=== PATIENT | female | born 1935 | race Caucasian/White ===

== ENCOUNTER 2017-01-06 20:39 | Emergency (ER) | payer OTHER ==
[~2017-01-06] VITALS: Ht 157.5 cm; Wt 55.4 kg
[~2017-01-06 20:39] MED LIST: ALBUTEROL SULF8.5 GM IH; ALPRAZOLAM0.25 M2 PO; ASPIR 8181 M1 PO; ASPIR-LOW81 MG PO; ASPIRIN81 M1 PO; CALCITONIN-SAL3.8 ML ALT NARES; CALCITONIN-SAL3.8 ML NS; CALTRATE 6001 TABLE1 PO; CALTRATE PLUS1 EACH PO; CELEXA40 MG PO; CITALOPRAM HBR20 MG PO; CRESTOR10 MG PO; CRESTOR5 MG PO; DULCOLAX5 MG PO; FAMOTIDINE20 MG PO; FISH OIL CONC1000 M1 PO; FLEXERIL5 MG PO; FLONASE16 G1 BOTH NARES; HYDROMORPHONE HC4 MG PO; METOPROLOL SUCC25 MG PO; METOPROLOL TART25 MG PO; MIACALCIN4 ML NS; MIRALAX255 GM PO; NEXIUM 24HR20 MG PO; NEXIUM40 MG PO; NORCO 5/3251 TABLET PO; PEPCID20 MG PO; PERCOCET 5/31 TABLET PO; PLAVIX75 MG PO; PRILOSEC20 MG PO; PROVENTIL,2.5 MG/3 M IH; TUDORZA PRESS400 MCG IH; VALIUM2 MG PO; VALIUM5 MG PO; VENTOLIN HFA18 GM IH; ZEGERID; ZOFRAN4 MG PO
[2017-01-06 21:29] LABS: HEMATOCRIT 34.2 % (36.0-46.0); MCH 29.2 PG (29.0-34.0); MCHC 31.9 G/DL (30.0-36.0); MCV 91.7 FL (83-99); PLATELET COUNT 164 K/uL (156-360); RBC DIS.WIDTH-CV 14.2 % (11.8-14.6); RED BLOOD COUNT 3.73 M/uL (3.80-5.20); WHITE BLOOD COUNT 6.5 K/uL (4.1-10.2)
[2017-01-06 21:38] LABS: CHLORIDE 105 mEq/L (99-109); POTASSIUM 4.3 mEq/L (3.7-5.4); SODIUM 139 mEq/L (136-147)
[2017-01-06 21:40] LABS: GLUCOSE 115 mg/dL (70-99)
[2017-01-06 21:42] LABS: ANION GAP 6 MEQ/L (2-14); TOTAL BILIRUBIN 0.2 mg/dL (0.0-1.0)
[2017-01-06 21:44] LABS: ALKALINE PHOSPHATASE 73 IU/L (3-129); GFR ESTIMATE (CALCULATED) > 59 mL/min/
[2017-01-06 21:45] LABS: UREA NITROGEN (BUN) 23 mg/dL (9-23)
[2017-01-06 21:46] LABS: DIRECT BILIRUBIN 0.1 mg/dL (0.0-0.3)
[2017-01-06 21:47] LABS: LIPASE 16 U/L (1.0-51.0)
[2017-01-06 21:53] LABS: TROP-I INTERPRETATION NEGATIVE; TROPONIN-I < 0.01 ng/mL (0.0-0.30)
[2017-01-06] MEDS ORDERED: INHALER (22:55)
[2017-01-06] MEDS ORDERED: SYMBICORT IH (22:55)
[2017-01-06] MEDS ORDERED: HYDROCODON-ACE1 EAC7 PO (22:56)
[2017-01-07 00:02] VITALS: BP 162/67
== END 2017-01-07 00:03 | disposition home or self-care (01) ==
LOC: EME 20:39 → EDOF 23:16
PROVIDERS: Emergency Medicine
DX: R07.89 Other chest pain (principal); I25.10 Atherosclerotic heart disease of native coronary artery without angina pectoris; Z95.5 Presence of coronary angioplasty implant and graft; R11.2 Nausea with vomiting, unspecified; R06.02 Shortness of breath; J45.909 Unspecified asthma, uncomplicated; J44.9 Chronic obstructive pulmonary disease, unspecified; E78.5 Hyperlipidemia, unspecified; I10 Essential (primary) hypertension; I25.2 Old myocardial infarction; K21.9 Gastro-esophageal reflux disease without esophagitis; F32.9 Major depressive disorder, single episode, unspecified
CPT/HCPCS: 71010; 71275; 80048; 80076; 83605; 83690; 84484; 85027; 93005; 94640; 99281; 99285; G0378; J2270; J2405; J7030

== ENCOUNTER 2017-02-12 11:34 | Inpatient (IN) | payer OTHER ==
[~2017-02-12] VITALS: Ht 160 cm; Wt 53.4 kg
[~2017-02-12 11:34] MED LIST changes: +HYDROCODON-ACE1 EAC7 PO; +INHALER; +SYMBICORT IH
[2017-02-12 12:32] LABS: HEMATOCRIT 37.7 % (36.0-46.0); MCH 29.3 PG (29.0-34.0); MCV 94.5 FL (83-99); MEAN PLAT.VOLUME 10.9 uM^3 (9.5-12.4); PLATELET COUNT 257 K/uL (156-360); RBC DIS.WIDTH-CV 14.5 % (11.8-14.6); RBC DIS.WIDTH-SD 50.6 % (39-53); RED BLOOD COUNT 3.99 M/uL (3.80-5.20); WHITE BLOOD COUNT 9.4 K/uL (4.1-10.2)
[2017-02-12 12:43] LABS: CARBON DIOXIDE (BICARBONATE) 33.3 MEQ/L (20-31)
[2017-02-12 12:44] LABS: CHLORIDE 100 mEq/L (99-109); POTASSIUM 4.3 mEq/L (3.7-5.4); SODIUM 140 mEq/L (136-147)
[2017-02-12 12:45] LABS: GLUCOSE 126 mg/dL (70-99)
[2017-02-12 12:47] LABS: ANION GAP 13 MEQ/L (2-14)
[2017-02-12 12:49] LABS: GFR ESTIMATE (CALCULATED) > 59 mL/min/
[2017-02-12 12:50] LABS: UREA NITROGEN (BUN) 23 mg/dL (9-23)
[2017-02-12 12:56] LABS: TROP-I INTERPRETATION NEGATIVE; TROPONIN-I 0.04 ng/mL (0.0-0.30)
[2017-02-12] MEDS ORDERED: BACLOFEN10 MG PO (13:28)
[2017-02-12] MEDS ORDERED: SYMBICORT60 INHALAT IH (13:29)
[2017-02-12 16:41] VITALS: BP 187/73
[2017-02-12 23:13] VITALS: BP 179/80
[2017-02-13 03:40] VITALS: BP 138/64
[2017-02-13 07:25] VITALS: BP 152/69
[2017-02-13 07:26] LABS: ANION GAP 8 MEQ/L (2-14); CHLORIDE 100 MEQ/L (99-109); GFR ESTIMATE (CALCULATED) > 59 mL/min/; POTASSIUM 4.8 MEQ/L (3.7-5.4); SAMPLE HEMOLYSIS CHECK 0; SAMPLE ICTERIC CHECK 0; SAMPLE LIPEMIA CHECK 0; SODIUM 141 MEQ/L (136-147); UREA NITROGEN (BUN) 26 mg/dL (9-23)
[2017-02-13 07:31] LABS: HEMATOCRIT 35.4 % (36.0-46.0); MCHC 30.8 G/DL (30.0-36.0); MCV 94.1 FL (83-99); MEAN PLAT.VOLUME 10.8 uM^3 (9.5-12.4); PLATELET COUNT 245 K/uL (156-360); RBC DIS.WIDTH-CV 14.1 % (11.8-14.6); RED BLOOD COUNT 3.76 M/uL (3.80-5.20)
[2017-02-13 07:34] LABS: GLUCOSE 191 mg/dL (70-99)
[2017-02-13 07:35] LABS: WHITE BLOOD COUNT 6.2 K/uL (4.1-10.2)
[2017-02-13 11:01] VITALS: BP 126/60
[2017-02-13 15:49] VITALS: BP 131/61
[2017-02-13 19:01] VITALS: BP 134/62
[2017-02-13 22:46] VITALS: BP 153/69
[2017-02-14 07:17] VITALS: BP 168/71
[2017-02-14 11:13] VITALS: BP 142/60
[2017-02-14 15:46] VITALS: BP 148/65
[2017-02-14 18:41] VITALS: BP 157/72
[2017-02-14 22:29] VITALS: BP 159/68
[2017-02-15] MEDS ORDERED: PREDNISONE10 MG PO (06:46)
[2017-02-15] MEDS ORDERED: CEFTIN500 MG PO (06:47)
[2017-02-15] MEDS ORDERED: NEBULIZER MC (06:48)
[2017-02-15 08:24] VITALS: BP 183/87
[2017-02-15] MEDS ORDERED: DUONEB 2.5-0.5 M3 ML AEROSOL (08:42)
[2017-02-15 11:42] VITALS: BP 168/73
== END 2017-02-15 15:20 | disposition home or self-care (01) | DRG 190 ==
LOC: EME 11:34 → EDOF 13:00 → 5EAST 13:00 → EDOF 13:00 → 5EAST 16:13
PROVIDERS: Emergency Medicine; Family Medicine
DX: J44.1 Chronic obstructive pulmonary disease with (acute) exacerbation (principal); J96.21 Acute and chronic respiratory failure with hypoxia; K21.9 Gastro-esophageal reflux disease without esophagitis; I25.10 Atherosclerotic heart disease of native coronary artery without angina pectoris; E78.5 Hyperlipidemia, unspecified; F41.9 Anxiety disorder, unspecified; F32.9 Major depressive disorder, single episode, unspecified; I73.9 Peripheral vascular disease, unspecified; Z95.820 Peripheral vascular angioplasty status with implants and grafts; M81.0 Age-related osteoporosis without current pathological fracture; I10 Essential (primary) hypertension; F17.200 Nicotine dependence, unspecified, uncomplicated; Z99.81 Dependence on supplemental oxygen; Z95.5 Presence of coronary angioplasty implant and graft; Z95.2 Presence of prosthetic heart valve; Z79.02 Long term (current) use of antithrombotics/antiplatelets; Z79.82 Long term (current) use of aspirin; I25.2 Old myocardial infarction; Z86.73 Personal history of transient ischemic attack (TIA), and cerebral infarction without residual deficits
CPT/HCPCS: 71020; 80048; 82803; 83605; 83880; 84484; 85027; 87040; 93005; 94640; 94640 76; 94760; 94799; 99202; 99281; 99285; J0456; J0696; J1100; J1644; J2405; J2930; J7050

== ENCOUNTER → 2017-10-09 | Outpatient (CLI) | payer OTHER ==
[~2017-10-09] VITALS: Ht 161.3 cm; Wt 54.5 kg
[~2017-10-09] MED LIST changes: +ARICEPT5 MG PO; +BACLOFEN10 MG PO; +CEFTIN500 MG PO; +DUONEB 2.5-0.5 M3 ML AEROSOL; +NEBULIZER MC; +PREDNISONE10 MG PO; +SYMBICORT60 INHALAT IH
== END | disposition home or self-care (01) ==
LOC: AMB 06:27
DX: K22.4 Dyskinesia of esophagus (principal); K22.2 Esophageal obstruction; K29.50 Unspecified chronic gastritis without bleeding; R11.0 Nausea; K21.9 Gastro-esophageal reflux disease without esophagitis; J44.9 Chronic obstructive pulmonary disease, unspecified; F41.8 Other specified anxiety disorders; F17.210 Nicotine dependence, cigarettes, uncomplicated; Z79.82 Long term (current) use of aspirin; Z86.73 Personal history of transient ischemic attack (TIA), and cerebral infarction without residual deficits; I25.2 Old myocardial infarction
CPT/HCPCS: 88305; 88342 TC

== ENCOUNTER 2017-11-11 18:34 | Inpatient (IN) | payer OTHER ==
[~2017-11-11] VITALS: Ht 160 cm; Wt 56.8 kg
[2017-11-11 20:13] LABS: BASE EXCESS 6.2 mEq/L (-3 to +3); BICARBONATE 33.3 mEq/L (22-26); CARBOXY HGB 2.6 % (0-5); COMMENTS - BLOOD GASES C+; DEVICE NC; METHEMOGLOBIN 1.1 % (0-1.5); O2 FLOW 2 L/MIN; PCO2 59 mm Hg (35-45); PO2 73 mm Hg (80-100); SITE LB; TOTAL RESP RATE 30 resp/min; pH 7.36 (7.35-7.45)
[2017-11-11 20:41] LABS: HEMATOCRIT 39.1 % (36.0-46.0); HEMOGLOBIN 12.3 G/DL (11.9-15.5); MCH 29.9 PG (29.0-34.0); MCHC 31.5 G/DL (30.0-36.0); MCV 95.1 FL (83-99); NRBC (%) 0.3 /100 WBC (0-0); PLATELET COUNT 212 K/uL (156-360); RBC DIS.WIDTH-SD 49.1 % (39-53); RED BLOOD COUNT 4.11 M/uL (3.80-5.20); WHITE BLOOD COUNT 24.5 K/uL (4.1-10.2)
[2017-11-11 20:51] LABS: ALBUMIN 3.3 g/dL (3.2-4.8); CHLORIDE 100 mEq/L (99-109); POTASSIUM 4.8 mEq/L (3.7-5.4); SODIUM 144 mEq/L (136-147)
[2017-11-11 20:53] LABS: GLUCOSE 126 mg/dL (70-99); TOTAL PROTEIN 6.9 g/dL (6.4-8.3)
[2017-11-11 20:55] LABS: TOTAL BILIRUBIN 0.5 mg/dL (0.0-1.0)
[2017-11-11 20:57] LABS: ALKALINE PHOSPHATASE 131 IU/L (3-129); CREATININE 1.8 mg/dL (0.6-1.3); GFR ESTIMATE (CALCULATED) 29 mL/min/
[2017-11-11 20:58] LABS: UREA NITROGEN (BUN) 87 mg/dL (9-23)
[2017-11-11 21:00] LABS: ALT (GPT) 945 IU/L (3-49)
[2017-11-11 21:01] LABS: AST (GOT) 1412 IU/L (2-34)
[2017-11-11] MEDS ORDERED: DONEPEZIL HCL10 M1 PO (23:12)
[2017-11-11] MEDS ORDERED: ROSUVASTATIN CA10 MG PO (23:13)
[2017-11-11] MEDS ORDERED: CITALOPRAM HBR20 MG PO (23:13)
[2017-11-11] MEDS ORDERED: ALPRAZOLAM0.25 M2 PO (23:13)
[2017-11-11] MEDS ORDERED: BENZONATATE100 MG PO (23:18)
[2017-11-11 23:23] LABS: APPEARANCE SL.HAZY ((CLEAR)); BILIRUBIN NEGATIVE; BLOOD MODERATE; COLOR YELLOW ((YELLOW)); GLUCOSE (STRIP) NEGATIVE; KETONES NEGATIVE; LEUKOCYTES SMALL; NITRITE NEGATIVE; PROTEIN (STRIP) 30; SPECIFIC GRAVITY 1.017 (1.000-1.030)
[2017-11-11 23:32] LABS: BACTERIA 2+ /HPF; EPITHELIAL CELLS 3+ /HPF; MUCUS TRACE /LPF; RED BLOOD CELLS 0-5 /HPF (0-5); UCUL ADDED? YES
[2017-11-12 07:28] LABS: BASOPHIL (%) 0.2 % (0-1); EOSINOPHIL (%) 0.1 % (0-5); HEMATOCRIT 35.7 % (36.0-46.0); HEMOGLOBIN 11.2 G/DL (11.9-15.5); IMMATURE GRANULOCYTE (%) 1.4 % (0.0-0.7); LYMPHOCYTE (%) 5.7 % (15-42); LYMPHOCYTE COUNT 1.1 K/uL (1.0-2.8); MCH 29.2 PG (29.0-34.0); MCHC 31.4 G/DL (30.0-36.0); MCV 93.2 FL (83-99); MONOCYTE (%) 3.2 % (3-12); MONOCYTE COUNT 0.6 K/uL (0-0.8); NEUTROPHIL (%) 89.4 % (45-76); NEUTROPHIL COUNT 16.7 K/uL (1.8-6.4); NRBC (%) 0.3 /100 WBC (0-0); PLATELET COUNT 190 K/uL (156-360); RBC DIS.WIDTH-CV 14.1 % (11.8-14.6); RBC DIS.WIDTH-SD 48.1 % (39-53); RED BLOOD COUNT 3.83 M/uL (3.80-5.20); WHITE BLOOD COUNT 18.6 K/uL (4.1-10.2)
[2017-11-12 08:10] LABS: ALBUMIN 2.8 G/DL (3.2-4.8); ALKALINE PHOSPHATASE 105 IU/L (3-129); ALT (GPT) 540 IU/L (3-49); AST (GOT) 690 IU/L (2-34); CHLORIDE 109 MEQ/L (99-109); CREATININE 1.1 MG/DL (0.6-1.3); GFR ESTIMATE (CALCULATED) 51 mL/min/; GLUCOSE 86 mg/dL (70-99); LIPASE 15 U/L (1.0-51.0); SODIUM 145 MEQ/L (136-147); TOTAL BILIRUBIN 0.5 MG/DL (0.0-1.0); TOTAL PROTEIN 5.8 G/DL (6.4-8.3); UREA NITROGEN (BUN) 60 mg/dL (9-23)
[2017-11-12 08:57] LABS: INTER. NORMALIZED RATIO 1.2
[2017-11-12 09:00] LABS: PTT 21.2 SEC (25-37)
[2017-11-12 11:53] LABS: HEPATITIS B SURFACE ANTIGEN Nonreactive
[2017-11-12 11:54] LABS: HEPATITIS C ANTIBODY Nonreactive
[2017-11-12 11:55] LABS: ANTI-HEPATITIS A VIRUS (IGM) Nonreactive
[2017-11-12 11:57] LABS: ANTI-HEPATITIS B CORE (IGM) Nonreactive
[2017-11-13 00:14] VITALS: BP 170/79
[2017-11-13 06:54] LABS: BASOPHIL (%) 0.3 % (0-1); EOSINOPHIL (%) 0.1 % (0-5); HEMATOCRIT 38.1 % (36.0-46.0); HEMOGLOBIN 11.8 G/DL (11.9-15.5); IMMATURE GRANULOCYTE (%) 1.5 % (0.0-0.7); LYMPHOCYTE (%) 6.1 % (15-42); LYMPHOCYTE COUNT 0.9 K/uL (1.0-2.8); MCH 28.6 PG (29.0-34.0); MCV 92.3 FL (83-99); MONOCYTE (%) 4.4 % (3-12); MONOCYTE COUNT 0.7 K/uL (0-0.8); NEUTROPHIL (%) 87.6 % (45-76); NEUTROPHIL COUNT 13.3 K/uL (1.8-6.4); NRBC (%) 0.1 /100 WBC (0-0); PLATELET COUNT 180 K/uL (156-360); RBC DIS.WIDTH-CV 14.1 % (11.8-14.6); RBC DIS.WIDTH-SD 47.7 % (39-53); RED BLOOD COUNT 4.13 M/uL (3.80-5.20); WHITE BLOOD COUNT 15.1 K/uL (4.1-10.2)
[2017-11-13 07:17] LABS: ALKALINE PHOSPHATASE 117 IU/L (3-129); ALT (GPT) 453 IU/L (3-49); CHLORIDE 99 MEQ/L (99-109); GLUCOSE 102 mg/dL (70-99); POTASSIUM 3.5 MEQ/L (3.7-5.4); SODIUM 144 MEQ/L (136-147)
[2017-11-13 07:22] LABS: AST (GOT) 359 IU/L (2-34); CREATININE 0.6 MG/DL (0.6-1.3); GFR ESTIMATE (CALCULATED) > 59 mL/min/; TOTAL BILIRUBIN 0.8 MG/DL (0.0-1.0); UREA NITROGEN (BUN) 25 mg/dL (9-23)
[2017-11-13 08:15] VITALS: BP 203/88
[2017-11-13 16:54] VITALS: BP 173/76
[2017-11-14 00:20] VITALS: BP 136/66
[2017-11-14 07:13] LABS: BASOPHIL (%) 0.3 % (0-1); EOSINOPHIL (%) 0.3 % (0-5); HEMATOCRIT 36.8 % (36.0-46.0); HEMOGLOBIN 11.3 G/DL (11.9-15.5); IMMATURE GRANULOCYTE (%) 0.9 % (0.0-0.7); LYMPHOCYTE (%) 9.2 % (15-42); LYMPHOCYTE COUNT 0.9 K/uL (1.0-2.8); MCH 28.3 PG (29.0-34.0); MCHC 30.7 G/DL (30.0-36.0); MONOCYTE (%) 5.5 % (3-12); MONOCYTE COUNT 0.6 K/uL (0-0.8); NEUTROPHIL (%) 83.8 % (45-76); NEUTROPHIL COUNT 8.5 K/uL (1.8-6.4); PLATELET COUNT 151 K/uL (156-360); RBC DIS.WIDTH-CV 14.3 % (11.8-14.6); RBC DIS.WIDTH-SD 48.2 % (39-53); WHITE BLOOD COUNT 10.2 K/uL (4.1-10.2)
[2017-11-14 07:47] LABS: ALBUMIN 2.6 G/DL (3.2-4.8); ALKALINE PHOSPHATASE 88 IU/L (3-129); ALT (GPT) 313 IU/L (3-49); CHLORIDE 101 MEQ/L (99-109); CREATININE 0.8 MG/DL (0.6-1.3); GFR ESTIMATE (CALCULATED) > 59 mL/min/; GLUCOSE 122 mg/dL (70-99); POTASSIUM 3.4 MEQ/L (3.7-5.4); SODIUM 143 MEQ/L (136-147); TOTAL BILIRUBIN 0.9 MG/DL (0.0-1.0); TOTAL PROTEIN 5.5 G/DL (6.4-8.3); UREA NITROGEN (BUN) 22 mg/dL (9-23)
[2017-11-14 07:50] LABS: AST (GOT) 157 IU/L (2-34)
[2017-11-14 09:14] VITALS: BP 134/66
[2017-11-14 16:15] VITALS: BP 132/62
[2017-11-15 00:31] VITALS: BP 125/60
[2017-11-15 07:04] LABS: BASOPHIL (%) 0.3 % (0-1); EOSINOPHIL (%) 0.8 % (0-5); EOSINOPHIL COUNT 0.1 K/uL (0-0.3); HEMOGLOBIN 10.3 G/DL (11.9-15.5); LYMPHOCYTE (%) 10.9 % (15-42); MCH 29.2 PG (29.0-34.0); MCHC 31.2 G/DL (30.0-36.0); MCV 93.5 FL (83-99); MONOCYTE (%) 7.6 % (3-12); MONOCYTE COUNT 0.7 K/uL (0-0.8); NEUTROPHIL (%) 79.4 % (45-76); NEUTROPHIL COUNT 7.3 K/uL (1.8-6.4); PLATELET COUNT 129 K/uL (156-360); RBC DIS.WIDTH-CV 14.5 % (11.8-14.6); RBC DIS.WIDTH-SD 49.1 % (39-53); RED BLOOD COUNT 3.53 M/uL (3.80-5.20); WHITE BLOOD COUNT 9.1 K/uL (4.1-10.2)
[2017-11-15 07:35] LABS: ALBUMIN 2.6 G/DL (3.2-4.8); ALKALINE PHOSPHATASE 82 IU/L (3-129); ALT (GPT) 195 IU/L (3-49); CHLORIDE 105 MEQ/L (99-109); CREATININE 0.6 MG/DL (0.6-1.3); GFR ESTIMATE (CALCULATED) > 59 mL/min/; GLUCOSE 108 mg/dL (70-99); SODIUM 141 MEQ/L (136-147); TOTAL PROTEIN 5.7 G/DL (6.4-8.3); UREA NITROGEN (BUN) 17 mg/dL (9-23)
[2017-11-15 07:48] LABS: AST (GOT) 69 IU/L (2-34); TOTAL BILIRUBIN 0.6 MG/DL (0.0-1.0)
[2017-11-15 08:16] VITALS: BP 179/75
[2017-11-15 16:16] VITALS: BP 125/58
[2017-11-16 00:20] VITALS: BP 164/72
[2017-11-16 07:25] LABS: BASOPHIL (%) 0.5 % (0-1); EOSINOPHIL (%) 1.1 % (0-5); EOSINOPHIL COUNT 0.1 K/uL (0-0.3); HEMATOCRIT 34.2 % (36.0-46.0); HEMOGLOBIN 10.5 G/DL (11.9-15.5); IMMATURE GRANULOCYTE (%) 0.8 % (0.0-0.7); LYMPHOCYTE (%) 9.8 % (15-42); LYMPHOCYTE COUNT 0.8 K/uL (1.0-2.8); MCH 29.5 PG (29.0-34.0); MCHC 30.7 G/DL (30.0-36.0); MCV 96.1 FL (83-99); MONOCYTE (%) 6.4 % (3-12); MONOCYTE COUNT 0.6 K/uL (0-0.8); NEUTROPHIL (%) 81.4 % (45-76); PLATELET COUNT 121 K/uL (156-360); RBC DIS.WIDTH-CV 14.5 % (11.8-14.6); RBC DIS.WIDTH-SD 50.6 % (39-53); RED BLOOD COUNT 3.56 M/uL (3.80-5.20); WHITE BLOOD COUNT 8.6 K/uL (4.1-10.2)
[2017-11-16 07:47] VITALS: BP 98/58
[2017-11-16 07:57] LABS: ALBUMIN 2.6 G/DL (3.2-4.8); ALKALINE PHOSPHATASE 86 IU/L (3-129); ALT (GPT) 143 IU/L (3-49); AST (GOT) 42 IU/L (2-34); CHLORIDE 103 MEQ/L (99-109); CREATININE 0.7 MG/DL (0.6-1.3); GFR ESTIMATE (CALCULATED) > 59 mL/min/; GLUCOSE 162 mg/dL (70-99); POTASSIUM 3.3 MEQ/L (3.7-5.4); SODIUM 145 MEQ/L (136-147); TOTAL BILIRUBIN 0.5 MG/DL (0.0-1.0); TOTAL PROTEIN 5.5 G/DL (6.4-8.3); UREA NITROGEN (BUN) 15 mg/dL (9-23)
[2017-11-16 16:25] VITALS: BP 138/74
[2017-11-17 00:48] VITALS: BP 153/67
[2017-11-17 06:51] LABS: BASOPHIL (%) 0.5 % (0-1); EOSINOPHIL (%) 1.6 % (0-5); EOSINOPHIL COUNT 0.1 K/uL (0-0.3); HEMATOCRIT 31.7 % (36.0-46.0); HEMOGLOBIN 9.7 G/DL (11.9-15.5); IMMATURE GRANULOCYTE (%) 0.7 % (0.0-0.7); LYMPHOCYTE (%) 14.2 % (15-42); LYMPHOCYTE COUNT 1.2 K/uL (1.0-2.8); MCH 28.9 PG (29.0-34.0); MCHC 30.6 G/DL (30.0-36.0); MCV 94.3 FL (83-99); MONOCYTE (%) 8.4 % (3-12); MONOCYTE COUNT 0.7 K/uL (0-0.8); NEUTROPHIL (%) 74.6 % (45-76); NEUTROPHIL COUNT 6.1 K/uL (1.8-6.4); PLATELET COUNT 124 K/uL (156-360); RBC DIS.WIDTH-CV 14.6 % (11.8-14.6); RBC DIS.WIDTH-SD 49.5 % (39-53); RED BLOOD COUNT 3.36 M/uL (3.80-5.20); WHITE BLOOD COUNT 8.2 K/uL (4.1-10.2)
[2017-11-17 07:17] LABS: ALBUMIN 2.5 G/DL (3.2-4.8); ALKALINE PHOSPHATASE 72 IU/L (3-129); ALT (GPT) 107 IU/L (3-49); AST (GOT) 31 IU/L (2-34); CHLORIDE 101 MEQ/L (99-109); CREATININE 0.7 MG/DL (0.6-1.3); GFR ESTIMATE (CALCULATED) > 59 mL/min/; SODIUM 141 MEQ/L (136-147); TOTAL BILIRUBIN 0.4 MG/DL (0.0-1.0); TOTAL PROTEIN 5.2 G/DL (6.4-8.3); UREA NITROGEN (BUN) 14 mg/dL (9-23)
[2017-11-17 07:23] VITALS: BP 171/77
[2017-11-17 07:29] LABS: GLUCOSE 95 mg/dL (70-99)
[2017-11-17 15:41] VITALS: BP 167/76
[2017-11-18 00:55] VITALS: BP 166/73
[2017-11-18 07:11] LABS: BASOPHIL (%) 0 % (0-1); EOSINOPHIL (%) 0 % (0-5); HEMATOCRIT 33.3 % (36.0-46.0); HEMOGLOBIN 10.3 G/DL (11.9-15.5); IMMATURE GRANULOCYTE (%) 0.7 % (0.0-0.7); LYMPHOCYTE (%) 5.5 % (15-42); LYMPHOCYTE COUNT 0.2 K/uL (1.0-2.8); MCH 28.9 PG (29.0-34.0); MCHC 30.9 G/DL (30.0-36.0); MCV 93.5 FL (83-99); MONOCYTE (%) 2.5 % (3-12); MONOCYTE COUNT 0.1 K/uL (0-0.8); NEUTROPHIL (%) 91.3 % (45-76); PLATELET COUNT 151 K/uL (156-360); RBC DIS.WIDTH-CV 14.5 % (11.8-14.6); RED BLOOD COUNT 3.56 M/uL (3.80-5.20); WHITE BLOOD COUNT 4.4 K/uL (4.1-10.2)
[2017-11-18 07:16] VITALS: BP 158/69
[2017-11-18 07:35] LABS: ALBUMIN 2.7 G/DL (3.2-4.8); ALKALINE PHOSPHATASE 75 IU/L (3-129); ALT (GPT) 86 IU/L (3-49); AST (GOT) 22 IU/L (2-34); CHLORIDE 98 MEQ/L (99-109); CREATININE 0.8 MG/DL (0.6-1.3); GFR ESTIMATE (CALCULATED) > 59 mL/min/; GLUCOSE 276 mg/dL (70-99); POTASSIUM 4.3 MEQ/L (3.7-5.4); SODIUM 139 MEQ/L (136-147); TOTAL PROTEIN 5.7 G/DL (6.4-8.3); UREA NITROGEN (BUN) 16 mg/dL (9-23)
[2017-11-18 07:36] LABS: TOTAL BILIRUBIN 0.5 MG/DL (0.0-1.0)
[2017-11-18 15:00] VITALS: BP 150/66
[2017-11-18 23:38] VITALS: BP 154/70
[2017-11-19 07:37] VITALS: BP 142/63
[2017-11-19 15:32] VITALS: BP 92/54
[2017-11-19 23:33] VITALS: BP 154/69
[2017-11-20 08:08] VITALS: BP 130/61
[2017-11-20 16:27] VITALS: BP 151/68
[2017-11-21 00:44] VITALS: BP 118/56
[2017-11-21 07:25] VITALS: BP 154/67
[2017-11-21 15:14] VITALS: BP 133/62
[2017-11-21 23:53] VITALS: BP 131/66
[2017-11-22 05:48] LABS: HEMATOCRIT 35.9 % (36.0-46.0); HEMOGLOBIN 11.4 G/DL (11.9-15.5); MCH 28.9 PG (29.0-34.0); MCHC 31.8 G/DL (30.0-36.0); MCV 91.1 FL (83-99); RBC DIS.WIDTH-CV 14.6 % (11.8-14.6); RBC DIS.WIDTH-SD 48.2 % (39-53); RED BLOOD COUNT 3.94 M/uL (3.80-5.20); WHITE BLOOD COUNT 9.3 K/uL (4.1-10.2)
[2017-11-22 05:51] LABS: PLATELET COUNT 268 K/uL (156-360)
[2017-11-22 06:28] LABS: ALBUMIN 2.9 G/DL (3.2-4.8); ALKALINE PHOSPHATASE 74 IU/L (3-129); ALT (GPT) 38 IU/L (3-49); AST (GOT) 18 IU/L (2-34); CHLORIDE 99 MEQ/L (99-109); CREATININE 0.6 MG/DL (0.6-1.3); GFR ESTIMATE (CALCULATED) > 59 mL/min/; GLUCOSE 124 mg/dL (70-99); POTASSIUM 3.9 MEQ/L (3.7-5.4); SODIUM 137 MEQ/L (136-147); TOTAL PROTEIN 5.6 G/DL (6.4-8.3)
[2017-11-22 06:29] LABS: TOTAL BILIRUBIN 0.3 MG/DL (0.0-1.0); UREA NITROGEN (BUN) 25 mg/dL (9-23)
[2017-11-22 07:35] VITALS: BP 137/64
[2017-11-22] MEDS ORDERED: NICOTINE PATCH1 EAC1 TD (14:13)
[2017-11-22] MEDS ORDERED: LORAZEPAM0.5 MG PO (14:31)
[2017-11-22 15:49] VITALS: BP 118/55
== END 2017-11-22 17:22 | DRG 189 ==
LOC: EME 18:34 → EDOF 11-12 00:10 → 5SOUTH 11-12 00:10 → ENRESERV 11-12 00:27 → 5SOUTH 11-12 18:19
PROVIDERS: Emergency Medicine; Family Medicine
DX: J96.20 Acute and chronic respiratory failure, unspecified whether with hypoxia or hypercapnia (principal); J18.9 Pneumonia, unspecified organism; N17.9 Acute kidney failure, unspecified; E78.5 Hyperlipidemia, unspecified; F41.8 Other specified anxiety disorders; K21.9 Gastro-esophageal reflux disease without esophagitis; E87.6 Hypokalemia; M81.0 Age-related osteoporosis without current pathological fracture; R74.8 Abnormal levels of other serum enzymes; F02.80 Dementia in other diseases classified elsewhere, unspecified severity, without behavioral disturbance, psychotic disturbance, mood disturbance, and anxiety; G30.9 Alzheimer's disease, unspecified; R74.0 Nonspecific elevation of levels of transaminase and lactic acid dehydrogenase [LDH]; I25.10 Atherosclerotic heart disease of native coronary artery without angina pectoris; F17.210 Nicotine dependence, cigarettes, uncomplicated; J43.2 Centrilobular emphysema; G47.00 Insomnia, unspecified; I73.9 Peripheral vascular disease, unspecified; K57.30 Diverticulosis of large intestine without perforation or abscess without bleeding; I35.0 Nonrheumatic aortic (valve) stenosis; I71.4 Abdominal aortic aneurysm, without rupture; Z86.73 Personal history of transient ischemic attack (TIA), and cerebral infarction without residual deficits; Z99.81 Dependence on supplemental oxygen; Z95.5 Presence of coronary angioplasty implant and graft; Z95.2 Presence of prosthetic heart valve; Z79.82 Long term (current) use of aspirin; Z88.8 Allergy status to other drugs, medicaments and biological substances; I25.2 Old myocardial infarction; Z79.899 Other long term (current) drug therapy; Z91.19 Patient's noncompliance with other medical treatment and regimen
CPT/HCPCS: 36600; 71046; 71250; 74176; 76705; 80053; 80074; 81003; 82803; 83690; 85025; 85027; 85610; 85730; 87077; 87086; 87186; 87502; 93005; 94640; 94640 76; 94667; 94668; 94799; 97530 GP; 99202; 99281; 99285; J0692; J1644; J1940; J2405; J2543; J2920; J3480; J7030; J7050; J7512; S0028

== ENCOUNTER 2018-01-23 15:41 | Inpatient (IN) | payer OTHER ==
[~2018-01-23] VITALS: Ht 160 cm; Wt 54.5 kg
[~2018-01-23 15:41] MED LIST changes: +BENZONATATE100 MG PO; +DONEPEZIL HCL10 M1 PO; +LORAZEPAM0.5 MG PO; +NICOTINE PATCH1 EAC1 TD; +ROSUVASTATIN CA10 MG PO
[2018-01-23 17:20] LABS: CHLORIDE 101 mEq/L (99-109); POTASSIUM 4.1 mEq/L (3.7-5.4); SODIUM 141 mEq/L (136-147)
[2018-01-23 17:21] LABS: GLUCOSE 101 mg/dL (70-99)
[2018-01-23 17:25] LABS: CREATININE 0.6 mg/dL (0.6-1.3); GFR ESTIMATE (CALCULATED) > 59 mL/min/
[2018-01-23 17:26] LABS: UREA NITROGEN (BUN) 14 mg/dL (9-23)
[2018-01-23 17:39] LABS: BASOPHIL (%) 0.3 % (0-1); EOSINOPHIL (%) 2.1 % (0-5); EOSINOPHIL COUNT 0.1 K/uL (0-0.3); HEMATOCRIT 32.2 % (36.0-46.0); HEMOGLOBIN 9.9 G/DL (11.9-15.5); IMMATURE GRANULOCYTE (%) 0.3 % (0.0-0.7); LYMPHOCYTE COUNT 0.7 K/uL (1.0-2.8); MCH 29.6 PG (29.0-34.0); MCHC 30.7 G/DL (30.0-36.0); MCV 96.1 FL (83-99); MONOCYTE (%) 8.1 % (3-12); MONOCYTE COUNT 0.5 K/uL (0-0.8); NEUTROPHIL (%) 77.2 % (45-76); NEUTROPHIL COUNT 4.5 K/uL (1.8-6.4); PLATELET COUNT 168 K/uL (156-360); RBC DIS.WIDTH-CV 15.2 % (11.8-14.6); RBC DIS.WIDTH-SD 53.9 % (39-53); RED BLOOD COUNT 3.35 M/uL (3.80-5.20); WHITE BLOOD COUNT 5.8 K/uL (4.1-10.2)
[2018-01-23 17:46] LABS: TROP-I INTERPRETATION NEGATIVE; TROPONIN-I 0.01 ng/mL (0.0-0.30)
[2018-01-23] MEDS ORDERED: DUONEB 2.5-0.5 M3 ML AEROSOL (19:06)
[2018-01-23] MEDS ORDERED: NICODERM CQ1 EAC1 TD (19:06)
[2018-01-23] MEDS ORDERED: ATIVAN0.5 MG PO (19:07)
[2018-01-23] MEDS ORDERED: XANAX0.25 MG PO (19:07)
[2018-01-23] MEDS ORDERED: VENTOLIN HFA18 GM IH (19:08)
[2018-01-23] MEDS ORDERED: TRAZODONE HCL50 MG PO (19:08)
[2018-01-23] MEDS ORDERED: FLONASE16 G1 BOTH NARES (19:09)
[2018-01-23] MEDS ORDERED: SALINE NOSE SPR45 M1 BOTH NARES (19:09)
[2018-01-23 23:15] VITALS: BP 165/62
[2018-01-24 03:57] VITALS: BP 148/65
[2018-01-24 07:55] VITALS: BP 146/69
[2018-01-24 11:34] VITALS: BP 166/73
[2018-01-24 16:15] VITALS: BP 167/79
[2018-01-24 20:05] VITALS: BP 150/93
[2018-01-24 23:15] VITALS: BP 145/72
[2018-01-25 03:30] VITALS: BP 148/79
[2018-01-25 07:44] LABS: BASOPHIL (%) 0.1 % (0-1); EOSINOPHIL (%) 0 % (0-5); HEMATOCRIT 29.9 % (36.0-46.0); HEMOGLOBIN 9.2 G/DL (11.9-15.5); IMMATURE GRANULOCYTE (%) 0.7 % (0.0-0.7); LYMPHOCYTE (%) 6.5 % (15-42); LYMPHOCYTE COUNT 0.4 K/uL (1.0-2.8); MCHC 30.8 G/DL (30.0-36.0); MCV 94.3 FL (83-99); MONOCYTE (%) 5.1 % (3-12); MONOCYTE COUNT 0.3 K/uL (0-0.8); NEUTROPHIL (%) 87.6 % (45-76); NEUTROPHIL COUNT 5.9 K/uL (1.8-6.4); PLATELET COUNT 165 K/uL (156-360); RBC DIS.WIDTH-CV 14.9 % (11.8-14.6); RBC DIS.WIDTH-SD 52.5 % (39-53); RED BLOOD COUNT 3.17 M/uL (3.80-5.20); WHITE BLOOD COUNT 6.7 K/uL (4.1-10.2)
[2018-01-25 08:12] LABS: CHLORIDE 99 MEQ/L (99-109); CREATININE 0.6 MG/DL (0.6-1.3); GFR ESTIMATE (CALCULATED) > 59 mL/min/; GLUCOSE 144 mg/dL (70-99); POTASSIUM 4.7 MEQ/L (3.7-5.4); SODIUM 137 MEQ/L (136-147)
[2018-01-25 08:14] LABS: UREA NITROGEN (BUN) 22 mg/dL (9-23)
[2018-01-25 08:44] VITALS: BP 162/78
[2018-01-25] MEDS ORDERED: CEFTIN500 MG PO (13:47)
[2018-01-25] MEDS ORDERED: PREDNISONE20 MG PO (13:48)
== END 2018-01-25 16:43 | disposition home health service (06) | DRG 194 ==
LOC: EME → EDBD 15:41 → EME 15:41 → EDOF 19:15 → 2EAST 19:15 → ENRESERV 19:48 → 2EAST 01-24 00:15
PROVIDERS: Emergency Medicine; Family Medicine
DX: J18.1 Lobar pneumonia, unspecified organism (principal); J44.1 Chronic obstructive pulmonary disease with (acute) exacerbation; J44.0 Chronic obstructive pulmonary disease with (acute) lower respiratory infection; F02.81 Dementia in other diseases classified elsewhere, unspecified severity, with behavioral disturbance; F05 Delirium due to known physiological condition; J90 Pleural effusion, not elsewhere classified; E78.5 Hyperlipidemia, unspecified; I25.10 Atherosclerotic heart disease of native coronary artery without angina pectoris; Z66 Do not resuscitate; I44.7 Left bundle-branch block, unspecified; I73.9 Peripheral vascular disease, unspecified; K21.9 Gastro-esophageal reflux disease without esophagitis; M81.0 Age-related osteoporosis without current pathological fracture; F41.8 Other specified anxiety disorders; R73.9 Hyperglycemia, unspecified; G30.1 Alzheimer's disease with late onset; I25.2 Old myocardial infarction; Z99.81 Dependence on supplemental oxygen; Z95.5 Presence of coronary angioplasty implant and graft; Z95.2 Presence of prosthetic heart valve; Z88.1 Allergy status to other antibiotic agents; Z87.891 Personal history of nicotine dependence; Z87.01 Personal history of pneumonia (recurrent); Z86.73 Personal history of transient ischemic attack (TIA), and cerebral infarction without residual deficits; Z79.51 Long term (current) use of inhaled steroids; Z90.710 Acquired absence of both cervix and uterus; Z88.5 Allergy status to narcotic agent
CPT/HCPCS: 71045; 73502; 80048; 81003; 83605; 83880; 84484; 85025; 87040; 87086; 93005; 94640 76; 94799; 99202; 99281; 99284; J0456; J0692; J1100; J2930; J7644

== ENCOUNTER 2018-02-12 14:49 | Emergency (ER) | payer OTHER ==
[~2018-02-12] VITALS: Ht 160 cm; Wt 60.8 kg
[~2018-02-12 14:49] MED LIST changes: +ATIVAN0.5 MG PO; +NICODERM CQ1 EAC1 TD; +PREDNISONE20 MG PO; +SALINE NOSE SPR45 M1 BOTH NARES; +TRAZODONE HCL50 MG PO; +XANAX0.25 MG PO
[2018-02-12 15:08] LABS: HEMATOCRIT 29.4 % (36.0-46.0); HEMOGLOBIN 9.4 G/DL (11.9-15.5); MCH 30.2 PG (29.0-34.0); MCV 94.5 FL (83-99); PLATELET COUNT 139 K/uL (156-360); RBC DIS.WIDTH-CV 14.6 % (11.8-14.6); RBC DIS.WIDTH-SD 50.3 % (39-53); RED BLOOD COUNT 3.11 M/uL (3.80-5.20); WHITE BLOOD COUNT 7.3 K/uL (4.1-10.2)
[2018-02-12 15:19] LABS: CHLORIDE 102 mEq/L (99-109); POTASSIUM 4.3 mEq/L (3.7-5.4); SODIUM 141 mEq/L (136-147)
[2018-02-12 15:20] LABS: GLUCOSE 104 mg/dL (70-99)
[2018-02-12 15:24] LABS: CREATININE 0.6 mg/dL (0.6-1.3); GFR ESTIMATE (CALCULATED) > 59 mL/min/
[2018-02-12 15:25] LABS: UREA NITROGEN (BUN) 14 mg/dL (9-23)
[2018-02-12 15:29] LABS: TROP-I INTERPRETATION NEGATIVE; TROPONIN-I < 0.01 ng/mL (0.0-0.30)
[2018-02-12] MEDS ORDERED: VENTOLIN HFA18 GM IH (19:13)
[2018-02-12] MEDS ORDERED: PREDNISONE20 MG PO (19:13)
[2018-02-12 20:05] VITALS: BP 159/62
== END 2018-02-12 20:45 | disposition home or self-care (01) ==
LOC: EME 14:49
PROVIDERS: Nurse Practitioner Family
DX: J44.9 Chronic obstructive pulmonary disease, unspecified (principal); K21.9 Gastro-esophageal reflux disease without esophagitis; I25.2 Old myocardial infarction; F41.9 Anxiety disorder, unspecified; F32.9 Major depressive disorder, single episode, unspecified; Z87.891 Personal history of nicotine dependence; Z88.5 Allergy status to narcotic agent; Z88.1 Allergy status to other antibiotic agents
CPT/HCPCS: 71046; 71275; 80048; 84484; 85027; 93005; 94640; 99281; 99285; J2060; J2930

== ENCOUNTER 2018-02-17 15:57 | Emergency (ER) | payer OTHER ==
[~2018-02-17] VITALS: Ht 162.6 cm; Wt 60.3 kg
[2018-02-17 16:25] LABS: HEMATOCRIT 38.3 % (36.0-46.0); HEMOGLOBIN 11.5 G/DL (11.9-15.5); MCH 30.3 PG (29.0-34.0); MCV 100.8 FL (83-99); PLATELET COUNT 305 K/uL (156-360); RBC DIS.WIDTH-CV 14.5 % (11.8-14.6); RBC DIS.WIDTH-SD 53.1 % (39-53); WHITE BLOOD COUNT 12.8 K/uL (4.1-10.2)
[2018-02-17 16:30] LABS: CARBON DIOXIDE (BICARBONATE) 38.4 MEQ/L (20-31)
[2018-02-17 16:32] LABS: CHLORIDE 103 mEq/L (99-109); SODIUM 143 mEq/L (136-147)
[2018-02-17 16:34] LABS: GLUCOSE 157 mg/dL (70-99)
[2018-02-17 16:38] LABS: CREATININE 0.9 mg/dL (0.6-1.3); GFR ESTIMATE (CALCULATED) > 59 mL/min/
[2018-02-17 16:39] LABS: UREA NITROGEN (BUN) 35 mg/dL (9-23)
[2018-02-17 16:41] LABS: POTASSIUM 6.1 mEq/L (3.7-5.4)
[2018-02-17 16:45] LABS: TROP-I INTERPRETATION NEGATIVE; TROPONIN-I 0.03 ng/mL (0.0-0.30)
[2018-02-17 19:57] VITALS: BP 125/51
== END 2018-02-17 20:01 | disposition hospice, home (50) ==
LOC: EME 15:57
PROVIDERS: Emergency Medicine
DX: J96.02 Acute respiratory failure with hypercapnia (principal); J96.01 Acute respiratory failure with hypoxia; J18.1 Lobar pneumonia, unspecified organism; J45.909 Unspecified asthma, uncomplicated; K21.9 Gastro-esophageal reflux disease without esophagitis; I25.2 Old myocardial infarction; F41.9 Anxiety disorder, unspecified; F32.9 Major depressive disorder, single episode, unspecified; Z87.891 Personal history of nicotine dependence; Z79.82 Long term (current) use of aspirin; Z88.5 Allergy status to narcotic agent; Z88.8 Allergy status to other drugs, medicaments and biological substances
CPT/HCPCS: 71045; 80047; 80048; 82803; 83605; 83880; 84484; 84999; 85027; 87040; 99281; 99285; J1170